=== PATIENT | male | born 1945 | race Caucasian/White ===

== ENCOUNTER 2017-12-06 07:25 | Day surgery (SDC) | payer BC ==
[2017-11-30 11:06] VITALS: BMI 24.3
[2017-12-06] MEDS ORDERED: PROPOFOL 20 ML ONE ×2 (07:32)
[2017-12-06 08:11] VITALS: TEMP 98.2
[2017-12-06] MEDS ORDERED: LIDOCAINE HCL/PF 2% SDV 5ML VIAL ONE (08:11)
[2017-12-06 09:50] VITALS: BP 105/68; PULSE 58
--- NOTE | 2017-12-07 16:53 | PATH ---
Surgical Pathology Report Patient Name: DAVID TORRES [facility]. Rec. #: [id number] /Age/Gender: 1945 (Age: 72) / M Account: [id number] Location: [facility] Taken: 12/06/2017 Received: 12/06/2017 Reported: 12/07/2017 Physicians: Santos Pereira M.D. Specimen(s) Received A: TERMINAL ILEUM B: POLYP ILEOCECAL VALVE C: RIGHT COLON D: HEPATIC FLEXURE E: LEFT COLON F: SIGMOID G: DISTAL SIGMOID H: RECTUM Clinical History Preoperative diagnosis: Crohn's colitis, ulcerative colitis Postoperative diagnosis: Rule out dysplasia, polyp, ulcerative colitis Final Diagnosis A. TERMINAL ILEUM, BIOPSY: ILEAL MUCOSA WITH NO PATHOLOGIC FINDINGS. B. ILEOCECAL VALVE, POLYP, BIOPSY: TUBULAR ADENOMA. C. RIGHT COLON, BIOPSY: MODERATE CHRONIC COLITIS, MILDLY ACTIVE. NEGATIVE FOR DYSPLASIA. D. HEPATIC FLEXURE, BIOPSY: MODERATE CHRONIC ACTIVE COLITIS. NEGATIVE FOR DYSPLASIA. E. LEFT COLON, BIOPSY: MODERATE CHRONIC ACTIVE COLITIS. NEGATIVE FOR DYSPLASIA. F. SIGMOID, BIOPSY: SEVERE CHRONIC ACTIVE COLITIS. NEGATIVE FOR DYSPLASIA. G. DISTAL SIGMOID, BIOPSY: SEVERE CHRONIC ACTIVE COLITIS. NEGATIVE FOR DYSPLASIA. H. RECTUM, BIOPSY: SEVERE CHRONIC ACTIVE PROCTITIS. NEGATIVE FOR DYSPLASIA. Electronically Signed Jennifer Hernandez M.D. Gross Description A. Received in formalin, labeled "terminal ileum" is a storey, irregular portion of soft tissue measuring 0.4 cm. in greatest dimension. The specimen is submitted in toto in one cassette. B. Received in formalin, labeled "polyp ileocecal valve" are 2 storey, irregular portions of soft tissue averaging 0.2 cm. in greatest dimension. The specimens are submitted in toto in one cassette. C. Received in formalin, labeled "right colon" are 2 storey, irregular portions of soft tissue measuring 0.2 and 0.3 cm. in greatest dimension. The specimens are submitted in toto in one cassette. D. Received in formalin, labeled "hepatic flexure" are 2 storey, irregular portions of soft tissue measuring 0.1 and 0.2 cm. in greatest dimension. The specimens are submitted in toto in one cassette. E. Received in formalin, labeled "left colon" are 2 storey, irregular portions of soft tissue measuring 0.2 and 0.3 cm. in greatest dimension. The specimens are submitted in toto in one cassette. F. Received in formalin, labeled "sigmoid" are 4 storey, irregular portions of soft tissue ranging from 0.2-0.6 cm. in greatest dimension. The specimens are submitted in toto in one cassette. G. Received in formalin, labeled "distal sigmoid" are 2 storey, irregular portions of soft tissue measuring 0.3 and 0.4 cm. in greatest dimension. The specimens are submitted in toto in one cassette. H. Received in formalin, labeled "rectum" are 2 storey, irregular portions of soft tissue measuring 0.2 and 0.3 cm. in greatest dimension. The specimens are submitted in toto in one cassette. 12/06/2017 [facility]12/06/2017
== END 2017-12-06 09:55 | disposition home health service (06) ==
LOC: FASU-ENDO 07:25
PROVIDERS: ATTEND Internal Medicine Gastroenterology
PROC: 0DBL8ZX Excision of Transverse Colon, Via Natural or Artificial Opening Endoscopic, Diagnostic (ICD-10-PCS; 2017-12-06)
PROC: 0DBN8ZX Excision of Sigmoid Colon, Via Natural or Artificial Opening Endoscopic, Diagnostic (ICD-10-PCS; 2017-12-06)
PROC: 0DBP8ZX Excision of Rectum, Via Natural or Artificial Opening Endoscopic, Diagnostic (ICD-10-PCS; 2017-12-06)
PROC: 0DBB8ZX Excision of Ileum, Via Natural or Artificial Opening Endoscopic, Diagnostic (ICD-10-PCS; 2017-12-06)
PROC: 0DBM8ZX Excision of Descending Colon, Via Natural or Artificial Opening Endoscopic, Diagnostic (ICD-10-PCS; 2017-12-06)
PROC: 0DBC8ZX Excision of Ileocecal Valve, Via Natural or Artificial Opening Endoscopic, Diagnostic (ICD-10-PCS; principal; 2017-12-06 08:46)
PROC: 0DBK8ZX Excision of Ascending Colon, Via Natural or Artificial Opening Endoscopic, Diagnostic (ICD-10-PCS; 2017-12-06 08:46)
DX: K51.90 Ulcerative colitis, unspecified, without complications (principal); D12.0 Benign neoplasm of cecum; K57.30 Diverticulosis of large intestine without perforation or abscess without bleeding
CPT/HCPCS: 88305-TC

== ENCOUNTER 2021-04-12 07:49 | Day surgery (SDC) | payer BC ==
[2021-04-09 18:46] VITALS: BMI 26.6
[2021-04-12] MEDS ORDERED: PROPOFOL 20 ML ONE ×3 (07:55)
[2021-04-12] MEDS ORDERED: LIDOCAINE HCL/PF 2% SDV 5ML VIAL ONE (07:55)
[2021-04-12 09:13] VITALS: TEMP 98.2
[2021-04-12 09:28] VITALS: BP 118/72; PULSE 64
== END 2021-04-12 09:29 | disposition home or self-care (01) ==
LOC: FASU-ENDO 07:49
PROVIDERS: ATTEND Internal Medicine Gastroenterology
PROC: 0DBN8ZX Excision of Sigmoid Colon, Via Natural or Artificial Opening Endoscopic, Diagnostic (ICD-10-PCS; 2021-04-12)
PROC: 0DBP8ZX Excision of Rectum, Via Natural or Artificial Opening Endoscopic, Diagnostic (ICD-10-PCS; 2021-04-12)
PROC: 0DBM8ZX Excision of Descending Colon, Via Natural or Artificial Opening Endoscopic, Diagnostic (ICD-10-PCS; principal; 2021-04-12 08:36)
DX: Z86.010 Personal history of colon polyps (principal); K51.90 Ulcerative colitis, unspecified, without complications; K57.30 Diverticulosis of large intestine without perforation or abscess without bleeding; Z87.19 Personal history of other diseases of the digestive system
CPT/HCPCS: 88305-TC